=== PATIENT | female | born 1975 | race Caucasian/White ===

== ENCOUNTER 2016-03-08 21:51 | Emergency (ER) | payer SELFPAY ==
[~2016-03-08] VITALS: Ht 167.6 cm; Wt 72.0 kg
[~2016-03-08 21:51] MED LIST: HYDR-762 PO; SULF1TAB7 PO
[2016-03-08 22:45] VITALS: Ht 167.6 cm; Wt 72.0 kg
== END 2016-03-09 02:56 | disposition left against medical advice (07) ==
LOC: FTE 21:51
DX: Z53.21 Procedure and treatment not carried out due to patient leaving prior to being seen by health care provider (principal)